=== PATIENT | female | born 2000 | race Caucasian/White ===

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

== ENCOUNTER → 2021-09-23 | Outpatient (CLI) | payer BC, OTHER ==
[~2021-09-23] MED LIST: SULF1TAB24 PO
--- NOTE | 2021-09-23 17:29 | RAD ---
EXAMINATION: US PELVIS W/TV, 09/23/2021 11:07 AM CLINICAL INDICATION: Pelvic pain TECHNIQUE: Grayscale, color and spectral Doppler ultrasound images of the pelvis via transabdominal a nd transvaginal approach. COMPARISON: None. FINDINGS: The uterus measures 6.2 x 4.3 x 2.7 cm. The endometrial stripe measures 3 mm in thickness. No myometr ial mass. The right ovary measures 2.7 x 1.3 x 1.0 cm. The left ovary measures 2.2 x 1.3 x 1.2 cm. Normal ovari an blood flow bilaterally. No adnexal mass or free fluid. IMPRESSION: Normal pelvic ultrasound. Electronically signed by: Deepika Cummings MD (09/23/2021 5:26 PM) [id number]
== END ==
LOC: US 10:57
PROVIDERS: ATTEND Obstetrics & Gynecology
DX: R10.2 Pelvic and perineal pain (principal); N30.00 Acute cystitis without hematuria; N89.8 Other specified noninflammatory disorders of vagina
CPT/HCPCS: 76830; 76856